=== PATIENT | female | born 2000 | race Caucasian/White ===

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

== ENCOUNTER 2023-10-22 10:57 | Emergency (ER) | payer MEDICAID ==
[~2023-10-22] VITALS: Ht 162.6 cm; Wt 45.5 kg
[~2023-10-22 10:57] MED LIST changes: -MECL-159 PO; +MECL-302 PO
[2023-10-22 11:20] VITALS: BP 110/68; PULSE 110; RESP 18; TEMP 98; O2SAT 98
[2023-10-22] MEDS ORDERED: CHLO473M2 PO (11:44)
[2023-10-22] MEDS ORDERED: AMOX-100 PO (11:44)
== END 2023-10-22 11:53 | disposition home or self-care (01) ==
LOC: ER 10:58
DX: O99.612 Diseases of the digestive system complicating pregnancy, second trimester (principal); Z3A.16 16 weeks gestation of pregnancy
CPT/HCPCS: 99283